=== PATIENT | female | born 1965 ===

== ENCOUNTER 2024-07-26 14:45 | Emergency (ER) | payer OTHER, SELFPAY ==
[2024-07-26 14:53] VITALS: BP 130/64; PULSE 68; O2SAT 98
[2024-07-26 14:58] VITALS: BP 113/62; PULSE 70; RESP 18; TEMP 36.6; O2SAT 98; BMI 24.0
--- NOTE | 2024-07-26 15:05 | ED_ITS ---
HPI - Neuro Symptoms/Deficit General Chief Complaint: Neuro Symptoms/Deficit Stated Complaint: sz, tremors x4 months, postictal A&O x4 Time Seen by Provider: 07/26/24 15:05 Source: patient, family, EMS and RN notes reviewed Mode of arrival: EMS Limitations: no limitations History of Present Illness ED Provider: steve HPI Narrative: Patient is a 59-year-old female with reported history of prior ME, hypertension, femoral stents placed [place] [facility] presenting to the emergency department with complaint of seizure like activity/full body tremors prior to arrival. Patient reports she has been having these episodes at least daily for the past month. Her episode today was witnessed by her neighbor who describes fall body tremors. Patient denies any bowel or bladder incontinence after these episodes. Neighbor reports that patient was awake throughout the entire episode but appeared confused after the tremors ceased, he states the tremors lasted approximately 20 seconds. She also reports several episodes of syncope recently but states that she has seen her PCP regarding those episodes. She reports that at times prior to her seizure-like episodes she sees either black or white. She has not seen a neurologist yet for her symptoms. She denies history of similar symptoms in the past. Onset (ago): month(s) Timing confirmed by: other (neighbor) Severity: similar to previous episodes Context: sudden onset On Anticoagulants: No Associated symptoms: denies other symptoms Treatments Prior to Arrival: none Related Data Home Medications ?Medication ?Instructions ?Recorded ?Confirmed Lactobacillus 1 cap PO DAILY 04/21/22 acidophilus-Bifidobac.animalis 10 billion cell capsule (Digestive Probiotic) albuterol sulfate 90 mcg/actuation 2 puff inhalation QID PRN wheezing 04/21/22 aerosol inhaler aspirin 81 mg tablet,delayed 81 mg PO DAILY 04/21/22 release bupropion HCl 150 mg 24 hr tablet, 150 mg PO QAM 04/21/22 extended release clonidine HCl 0.1 mg tablet 0.1 mg PO TID PRN 04/21/22 fluoxetine 40 mg capsule 40 mg PO DAILY 04/21/22 fluticasone 250 mcg-salmeterol 50 1 inh inhalation BID 04/21/22 mcg/dose blistr powdr for inhalation (Advair Diskus) fluticasone propionate 50 2 spray intranasal DAILY 04/21/22 mcg/actuation nasal spray,suspension fluticasone propionate 50 2 spray intranasal DAILY 04/21/22 mcg/actuation nasal spray,suspension gabapentin 600 mg tablet 600 mg PO TID 04/21/22 hydroxyzine HCl 50 mg tablet 50 mg PO TID 04/21/22 lisinopril 2.5 mg tablet 2.5 mg PO DAILY 04/21/22 lithium carbonate 300 mg 300 mg PO BID 04/21/22 tablet,extended release multivitamin 1 tab PO DAILY 04/21/22 omeprazole 40 mg capsule,delayed 40 mg PO DAILY 04/21/22 release prazosin 2 mg capsule 2 mg PO BID 04/21/22 prazosin 2 mg capsule 2 mg PO BID 04/21/22 pregabalin 150 mg capsule 150 mg PO BID 04/21/22 simvastatin 20 mg tablet 20 mg PO BEDTIME 04/21/22 trazodone 100 mg tablet 100 mg PO BEDTIME 04/21/22 Allergies Allergy/AdvReac Type Severity Reaction Status Date / Time penicillin G Allergy Mild Anaphylaxis Verified 07/26/24 15:00 Review of Systems 2 Review of Systems: As per HPI. Yes all other systems are reviewed and are negative Constitutional: Constitutional: Reports as per HPI [facility] Past Medical History Surgical History History of endometrial ablation Social History Social History Alcohol intake: current Alcohol intake frequency: holidays/special occasions only Patient Tobacco Use Status: Current everyday Tobacco user Smoked in Last 30 Days: Yes Use of substances other than those prescribed or required for medical reasons: No Advance Directives: No Advance Directives Information Provided: No Patient : No Physical Exam 2 Vital Signs: Vital Signs: Last Vital Signs Temp 97.6 F 07/26/24 20:15 Pulse 64 07/26/24 20:15 Resp 14 07/26/24 20:15 BP 136/79 07/26/24 20:15 Pulse Ox 97 07/26/24 20:15 O2 Del Method Room Air 07/26/24 20:15 BMI result Body Mass Index 24.0 Vital signs have been reviewed and appear to be correct. Blood pressure normal. Heart rate normal. Respiratory rate normal. Temperature normal. Oxygen saturation normal. Const: General: cooperative, healthy appearing and no acute distress O rientation/consciousness: oriented to person, oriented to place, oriented to time and patient oriented x3 Limitations: no limitations HEENT: Head: Yes normocephalic and Yes atraumatic Ears: external ears normal General nose exam: Normal external nose present Face and sinus: Yes face symmetric Mouth: oropharynx normal and moist mucous membranes Throat: Yes uvula midline Eyes: Pupils: Equal, round and reactive pupils present Neck: Neck: Yes normal visual inspection and Yes supple Resp: Effort & Inspection: normal respiratory effort and able to speak in complete sentences Auscultation: clear to auscultation bilaterally Cardio: Rate: regular rate Rhythm: regular rhythm Heart sounds: S1 normal heart sound present and S2 normal heart sound present GI: Inspection: Yes distended Palpation (GI): Soft to palpation and nontender Auscultation: normoactive bowel sounds : General: Yes no CVA tenderness Back/Spine/Pelvis: Back: no CVA tenderness Skin: General skin exam: elasticity normal and turgor normal Neuro: General: oriented to person, oriented to place, oriented to time, patient oriented x3, moves all extremities, no focal motor deficits and CN's II- XI intact bilaterally Cranial nerves: Yes Equal, round and reactive pupils present Cognition (Neuro): normal cognition Extrem: General: Yes full ROM, Yes no pedal edema and Yes no calf tenderness Psych: Mental Status: mental status grossly normal Affect: normal affect Thought process: Normal thought process present Medical Decision Making Medical Decision Making MDM Narrative: Patient is a 59-year-old female with reported history of prior ME, hypertension, femoral stents placed at [facility] presenting to the emergency department with complaint of seizure like activity/full body tremors prior to arrival. On exam patient is awake, A+Ox3, VS WNL, afebrile, normal neurological exam without focal deficits, physical exam findings as above. Given reported symptoms and physical exam findings, initial differential includes seizure, pseudoseizure, tremors, anxiety, drug or alcohol ingestion. Labs notable for no leukocytosis, mild anemia not requiring transfusion, no significant electrolyte abnormalities, normal lactic. Urine drug screen positive for cocaine and THC. Case discussed with Dr. Camargo who does not recommend CT head at this time. No seizure-like activity noted while patient in the department. Patient requesting discharge home. Feel patient is stable for discharge at this time. Will refer to neurology for further evaluation of symptoms. Return precautions discussed at bedside. Patient verbalized understanding of and agreement with plan. Differential Diagnosis Differential Diagnoses: The differential diagnosis associated with the presentation includes As per [facility]. Admission/Observation Consideration of admission/observation: Escalation of care including admission/observation considered Patient would have been admitted to the hospital had their work up had any findings where hospital admission was appropriate and their clinical presentation warranted hospital admission. Lab Data [facility] Lab Attestation statement: I reviewed the patient's lab results. as per [facility] 07/26/24 16:13 07/26/24 16:13 Labs: Lab Results 07/26/24 07/26/24 07/26/24 Range/Units 16:13 16:17 18:33 WBC 6.3 (4.8-10.8) X10*3/uL RBC 4.06 L (4.20-5.50) X10*6/uL Hgb 11.6 L (12.0-16.0) g/dl Hct 35.5 L (37.0-47.0) % MCV 87.4 (80.0-98.0) fL MCH 28.6 (27.0-33.0) pg MCHC 32.7 (31.0-35.0) g/dl RDW 14.9 (11.0-16.0) % Plt Count 201 (160-400) X10*3/uL MPV 10.1 (9.4-12.3) fL Immature Gran % (Auto) 0.3 (0.0-0.4) % Neut % (Auto) 40.8 L (45-73) % Lymph % (Auto) 47.5 H (20-40) % [place] % (Auto) 7.8 (2-11) % Eos % (Auto) 3.0 (0-4) % Baso % (Auto) 0.6 (0-2) % Lymph # (Auto) 3.0 (1.2-4.9) X10*3/uL [place] # (Auto) 0.5 (0.1-1.2) X10*3/uL Eos # (Auto) 0.2 (0.0-0.4) X10*3/uL Baso # (Auto) 0.0 (0.0-0.2) X10*3/uL Abs Immat Gran (auto) 0.02 (0.00-0.03) X10*3/uL Absolute Neuts (auto) 2.6 (2.0-8.3) x10*3/uL Absolute Nucleated RBC 0.000 (0.0-0.012) X10*3/uL Nucleated RBC % (auto) 0.0 (0.0-0.2) /100WBC Sodium 143 (135-145) mmol/L Potassium 3.9 (3.3-5.1) mmol/L Chloride 109 H (96-108) mmol/L Carbon Dioxide 29 (22-29) mmol/L Anion Gap 9 L (12-20) BUN 10 (9-16) mg/dL Creatinine 1.01 (0.5-1.4) mg/dL Estim Creat Clear Calc 47.9 Estimated GFR 56 Random Glucose 92 (60-115) mg/dL Lactic Acid 0.5 (0.5-2.0) mmol/L Calcium 8.6 (8.4-10.2) mg/dL Magnesium 2.1 (1.6-2.6) mg/dL Total Bilirubin 0.2 (0.0-1.0) mg/dL AST 14 (5-31) U/L ALT 12 (0-31) U/L Alkaline Phosphatase 79 (39-117) U/L Ammonia 30 (13-55) umol/L Total Protein 6.6 (6.5-8.0) g/dL Albumin 3.8 (3.5-5.0) g/dL TSH 1.41 (0.32-4.0) uIU/mL Urine Color Yellow Urine Appearance Clear Urine pH 7.0 (5.0-9.0) Ur Specific [place] 1.010 (1.005-1.025) Urine Protein Negative (Neg-Trace) mg/dL Urine Glucose (UA) Negative (Negative) mg/dL Urine Ketones Negative (Negative) mg/dL Urine Blood Negative (Negative) Urine Nitrite Negative (Negative) Ur Leukocyte Esterase Trace H (Negative) Urine RBC 0-2 (0-2) /HPF Urine WBC 0-5 (0-5) /HPF Ur Squamous Epith Cells 0-2 (0-2) /HPF Urine Bacteria None Seen (None Seen) Hyaline Casts 0-2 (0-2) /LPF Urine Opiates Screen Not Detected (Not Detect) Ur Buprenorphine Scrn Not Detected (Not Detect) ng/mL Ur Oxycodone Screen Not Detected (Not Detect) ng/mL Urine Methadone Screen Not Detected (Not Detect) ng/mL Urine Fentanyl Screen Not Detected (Not Detect) Ur Barbiturates Screen Not Detected (Not Detect) Ur Phencyclidine Scrn Not Detected (Not Detect) Ur Amphetamines Screen Not Detected (Not Detect) U Benzodiazepines Scrn Not Detected (Not Detect) Urine Cocaine Screen POSITIVE H (Not Detect) U Marijuana (THC) Screen POSITIVE H (Not Detect) Ethyl Alcohol < 10 mg/dL External Record Review External record reviewed: Inpatient record, Office record and Outpatient record Discharge Plan Discharge Clinical Impression: Seizure-like activity Patient Disposition: Home, Self-Care Instructions: Nonepileptic Seizures (DC) Additional Instructions: You were evaluated in the emergency department today for seizure-like activity. Your evaluation was reassuring but we recommend further evaluation by a neurologist. You are being referred to a neurologist, please call their office to schedule an appointment. We recommend that you follow-up with your primary care provider as well. Return to the emergency department if you have additional episodes of seizure-like activity, fever 100.4? F or greater, severe headache, confusion, vision changes, fainting or any other concerning symptoms. You should not drive until you are cleared by Neurology. Prescriptions: No Action bupropion HCl 150 mg tablet extended release 24 hr 150 mg PO QAM trazodone 100 mg tablet 100 mg PO BEDTIME pregabalin 150 mg capsule 150 mg PO BID lithium carbonate 300 mg tablet extended release 300 mg PO BID prazosin 2 mg capsule 2 mg PO BID lisinopril 2.5 mg tablet 2.5 mg PO DAILY gabapentin 600 mg tablet 600 mg PO TID simvastatin 20 mg tablet 20 mg PO BEDTIME aspirin 81 mg tablet,delayed release (DR/EC) 81 mg PO DAILY clonidine HCl 0.1 mg tablet 0.1 mg PO TID PRN fluticasone propionate 50 mcg/actuation spray,suspension 2 spray intranasal DAILY albuterol sulfate 90 mcg/actuation HFA aerosol inhaler 2 puff inhalation QID PRN (Reason: wheezing) omeprazole 40 mg capsule,delayed release(DR/EC) 40 mg PO DAILY fluoxetine 40 mg capsule 40 mg PO DAILY prazosin 2 mg capsule 2 mg PO BID hydroxyzine HCl 50 mg tablet 50 mg PO TID fluticasone propion-salmeterol [Advair Diskus] 250-50 mcg/dose blister with device 1 inh inhalation BID Digestive Probiotic 10 billion cell capsule 1 cap PO DAILY multivitamin Tablet 1 tab PO DAILY fluticasone propionate 50 mcg/actuation spray,suspension 2 spray intranasal DAILY Rx Instructions: administer into each nostril Referrals: Darek Flannery MD [Physician] - Print Language: Spanish
[2024-07-26 16:23] LABS: MANUAL DIFF FLAG NO
[2024-07-26 16:30] LABS: Basophils Percent Auto 0.6 % (0-2); Eosinophils Absolute Auto 0.2 X10*3/uL (0.0-0.4); Hematocrit 35.5 % (37.0-47.0); Hemoglobin 11.6 g/dl (12.0-16.0); Imm Gran Abs Auto 0.02 X10*3/uL (0.00-0.03); Imm Gran Pct Auto 0.3 % (0.0-0.4); Lymphocytes Percent Auto 47.5 % (20-40); Mean Corpuscular HGB Conc 32.7 g/dl (31.0-35.0); Mean Corpuscular Hemoglobin 28.6 pg (27.0-33.0); Mean Corpuscular Volume 87.4 fL (80.0-98.0); Mean Platelet Volume 10.1 fL (9.4-12.3); Monocytes Absolute Auto 0.5 X10*3/uL (0.1-1.2); Monocytes Percent Auto 7.8 % (2-11); Neutrophils Absolute Auto 2.6 x10*3/uL (2.0-8.3); Neutrophils Percent Auto 40.8 % (45-73); Platelet Count 201 X10*3/uL (160-400); Red Blood Count 4.06 X10*6/uL (4.20-5.50); Red Cell Distribution Width 14.9 % (11.0-16.0); White Blood Count 6.3 X10*3/uL (4.8-10.8)
--- NOTE | 2024-07-26 16:31 | PC.NURSE ---
Pt presents to ED via EMS from office. Reports tremors and seizure like activity multiple times a day for past 2 months. Describes these episodes as full body shaking with no loss of consciousness. Reports she is supposed to follow up with neurologist but has not yet. Alert and oriented, breathing even and unlabored, skin warm and dry. 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
[2024-07-26 16:32] LABS: Ammonia 30 umol/L (13-55)
[2024-07-26 16:35] LABS: Lactic Acid 0.5 mmol/L (0.5-2.0)
[2024-07-26 16:39] LABS: Alanine Aminotransferase 12 U/L (0-31); Albumin Level 3.8 g/dL (3.5-5.0); Alkaline Phosphatase 79 U/L (39-117); Anion Gap 9 (12-20); Aspartate Amino Transferase 14 U/L (5-31); Bilirubin Total 0.2 mg/dL (0.0-1.0); Blood Urea Nitrogen 10 mg/dL (9-16); Calcium 8.6 mg/dL (8.4-10.2); Carbon Dioxide 29 mmol/L (22-29); Chloride 109 mmol/L (96-108); Creatinine Clr Calc Pharmacy 47.9; Estimated Glomerular Filt Rate 56; Glucose Random 92 mg/dL (60-115); Magnesium 2.1 mg/dL (1.6-2.6); Potassium 3.9 mmol/L (3.3-5.1); Sodium 143 mmol/L (135-145); Total Protein 6.6 g/dL (6.5-8.0)
[2024-07-26 16:44] LABS: Ethanol < 10 mg/dL
[2024-07-26 17:00] LABS: TSH reflex Free T4 1.41 uIU/mL (0.32-4.0)
[2024-07-26 18:18] VITALS: BP 115/70; PULSE 68; RESP 16; TEMP 36.7; O2SAT 96
[2024-07-26 18:44] LABS: Appearance Urine Clear; Color Urine Yellow; Glucose Urine UA Negative (Negative); Leukocyte Esterase Urine Trace (Negative); Nitrite Urine Negative (Negative); UMIC TRIGGER UACC YES; Urine Blood Negative (Negative); Urine Ketones Negative (Negative); Urine Protein Negative (Neg-Trace)
[2024-07-26 18:48] LABS: Bacteria Urine None Seen (None Seen); Hyaline Casts Urine 0-2 /LPF (0-2); RBC Urine 0-2 /HPF (0-2); Squamous Epithelial Cell Urine 0-2 /HPF (0-2); WBC Urine 0-5 /HPF (0-5)
[2024-07-26 18:51] LABS: Amphetamine Screen Urine Not Detected (Not Detect); Barbiturates, Urine Not Detected (Not Detect); Benzodiazepines Screen Urine Not Detected (Not Detect); Buprenorphine Scr Not Detected (Not Detect); Cannabinoid Screen Urine POSITIVE (Not Detect); Cocaine Screen Urine POSITIVE (Not Detect); Fentanyl, urine Not Detected (Not Detect); Methadone Screen, Urine Not Detected (Not Detect); Opiate Screen Urine Not Detected (Not Detect); Oxycodone Screen Urine Not Detected (Not Detect); Phencyclidine Screen Urine Not Detected (Not Detect)
[2024-07-26 20:15] VITALS: BP 136/79; PULSE 64; RESP 14; TEMP 36.4; O2SAT 97
[2024-07-26 20:51] VITALS: BP 136/79; PULSE 64; RESP 14; TEMP 36.4; O2SAT 97
== END 2024-07-26 20:35 | disposition home or self-care (01) ==
PROVIDERS: Registered Nurse Emergency; Emergency Provider Emergency Medicine
DX: R56.9 Unspecified convulsions (principal); R25.1 Tremor, unspecified; F14.90 Cocaine use, unspecified, uncomplicated; F12.90 Cannabis use, unspecified, uncomplicated; F17.210 Nicotine dependence, cigarettes, uncomplicated; Z79.899 Other long term (current) drug therapy; Z51.81 Encounter for therapeutic drug level monitoring
CPT/HCPCS: 36415; 80053; 80307; 81001; 82140; 83605; 83735; 84443; 85025; 99284